=== PATIENT | male | born 1970 | race Caucasian/White ===

== ENCOUNTER 2017-01-15 18:48 | Emergency (ER) | payer SELFPAY ==
--- NOTE | 2017-01-15 19:13 | ER Document Report ---
ED Medical Screen (RME) - General Chief Complaint: Rectal Bleeding Stated Complaint: RECTAL BLEEDING Mode of Arrival: Ambulatory Information source: Patient Notes: Patient presents to the emergency department with left-sided abdominal pain and bloody diarrhea since yesterday. Reports he ate some meth a couple days ago which may be the possible cause. Denies fever vomiting. Denies past medical history of ulcers. Denies hx of GIB. Feels weak and dizzy. I have greeted and performed a rapid initial assessment of this patient. A comprehensive ED assessment and evaluation of the patient, analysis of test results and completion of the medical decision making process will be conducted by additional ED providers. - Related Data Allergies/Adverse Reactions: No Known Allergies Allergy (Verified 12/21/13 10:50) Past Medical History - Immunizations Hx Diphtheria, Pertussis, Tetanus Vaccination: No Physical Exam - Vital signs Vitals: Temp Pulse Resp BP Pulse Ox 98.1 F 91 20 120/94 H 100 01/15/17 18:58 01/15/17 18:58 01/15/17 18:58 01/15/17 18:58 01/15/17 18:58 Course - Vital Signs Vital signs: Temp Pulse Resp BP Pulse Ox 98.1 F 91 20 120/94 H 100 01/15/17 18:58 01/15/17 18:58 01/15/17 18:58 01/15/17 18:58 01/15/17 18:58
[2017-01-15 21:44] LABS: ABSOLUTE BASOPHILS # (AUTO) 0.1 10^3/uL (0.0-0.2); ABSOLUTE EOSINOPHILS # (AUTO) 0.2 10^3/uL (0.0-0.6); ABSOLUTE LYMPHOCYTES (AUTO) 1.4 10^3/uL (0.5-4.7); ABSOLUTE MONOCYTES (AUTO) 0.6 10^3/uL (0.1-1.4); ABSOLUTE NEUT (AUTO) 5.3 10^3/uL (1.7-8.2); BASOPHILS % (AUTO) 0.8 % (0-2); EOSINOPHILS % (AUTO) 2.8 % (0-6); HEMOGLOBIN 14.2 g/dL (13.5-17.0); HGB HCT DIFFERENCE 0.6; LYMPHOCYTES % (AUTO) 18.2 % (13-45); MEAN CORPUSCULAR HGB CONC 33.7 g/dL (32.0-36.0); MEAN CORPUSCULAR VOLUME 89 fl (80-97); MONOCYTES % (AUTO) 7.4 % (3-13); RED BLOOD COUNT 4.73 10^6/uL (4.35-5.55); RED CELL DISTRIBUTION WIDTH 13.5 % (11.5-14.0); SEGMENTED NEUTROPHILS % (AUTO) 70.8 % (42-78); WHITE BLOOD COUNT 7.6 10^3/uL (4.0-10.5)
[2017-01-15 21:46] LABS: APPEARANCE,URINE SLIGHTLY-CLOUDY; BILIRUBIN,URINE NEGATIVE (NEGATIVE); CALCIUM OXALATE CRYSTALS,URINE FEW /HPF; GLUCOSE, URINE NEGATIVE (NEGATIVE); KETONES,URINE NEGATIVE (NEGATIVE); LEUKOCYTE ESTERASE,URINE NEGATIVE (NEGATIVE); NITRITE,URINE NEGATIVE (NEGATIVE); PROTEIN,URINE 30 mg/dL (NEGATIVE); URINE SPECIFIC GRAVITY 1.033
[2017-01-15 21:50] LABS: PROTHROMBIN TIME 12.4 SEC (11.4-15.4)
[2017-01-15 22:01] LABS: URINE BARBITURATES SCREEN NEGATIVE; URINE METHADONE SCREEN NEGATIVE; URINE OPIATES LOW NEGATIVE; URINE PHENCYCLIDINE SCREEN NEGATIVE
[2017-01-15 22:03] LABS: ALANINE AMINOTRANSFERASE 24 U/L (21-72); ALBUMIN 4.6 g/dL (3.5-5.0); ALKALINE PHOSPHATASE 68 U/L (38-126); ANION GAP 14 (5-19); ASPARTATE AMINO TRANSFERASE 19 U/L (17-59); BILIRUBIN,DIRECT 0.2 mg/dL (0.0-0.4); BILIRUBIN,TOTAL 0.9 mg/dL (0.2-1.3); BLOOD UREA NITROGEN 14 mg/dL (7-20); CALCIUM 9.8 mg/dL (8.4-10.2); CARBON DIOXIDE 25 mmol/L (22-30); CHLORIDE 105 mmol/L (98-107); CREATININE RESULT 1.02 mg/dL (0.52-1.25); GLUCOSE 120 mg/dL (75-110); POTASSIUM 3.9 mmol/L (3.6-5.0); SODIUM 144.2 mmol/L (137-145); TOTAL PROTEIN 7.7 g/dL (6.3-8.2)
[2017-01-16] MEDS ORDERED: NORMAL SALINE 1000 ML 1,000 ML IV ONE (00:20)
--- NOTE | 2017-01-16 05:39 | ER Document Report ---
ED GI/ - General Chief Complaint: Abdominal Pain Stated Complaint: RECTAL BLEEDING Mode of Arrival: Ambulatory Information source: Patient Notes: 46-year-old male presents to the emergency department complaining of left lower quadrant abdominal pain over the last 2 days. Reports associated small amount of bright red blood in stool during bowel movements this morning. Patient admits to frequent use of crystal meth for approximately 2-3 times a week. Reports "ate" some 2 days ago however states already had onset of pain. Reports similar episode several years ago. Denies fever, nausea or vomiting, chest pain or shortness of breath. TRAVEL OUTSIDE OF THE [place] IN LAST 30 DAYS: No - HPI Patient complains to provider of: Abdominal pain Timing/Duration: Gradual, Persistent Quality of pain: Achy Severity at maximum: Moderate Severity in ED: Mild Pain Level: 1 Location: LLQ Associated symptoms: Blood in stool Similar symptoms previously: Yes Recently seen / treated by doctor: No - Related Data Allergies/Adverse Reactions: No Known Allergies Allergy (Verified 12/21/13 10:50) Past Medical History - General Information source: Patient - Social History Smoking Status: Current Every Day Smoker Frequency of alcohol use: Rare Drug Abuse: Methamphetamine Lives with: Family Family History: Reviewed & Not Pertinent Patient has suicidal ideation: No Patient has homicidal ideation: No - Medical History Medical History: Negative Renal/ Medical History: Denies: Hx Peritoneal Dialysis Surgical Hx: Negative - Immunizations Hx Diphtheria, Pertussis, Tetanus Vaccination: Yes Review of Systems - Review of Systems Constitutional: No symptoms reported EENT: No symptoms reported Cardiovascular: No symptoms reported Respiratory: No symptoms reported Gastrointestinal: See HPI Genitourinary: No symptoms reported Male Genitourinary: No symptoms reported Musculoskeletal: No symptoms reported Skin: No symptoms reported Hematologic/Lymphatic: No symptoms reported Neurological/Psychological: No symptoms reported -: Yes All other systems reviewed and negative Physical Exam - Vital signs Vitals: Temp Pulse Resp BP Pulse Ox 98.1 F 91 20 120/94 H 100 01/15/17 18:58 01/15/17 18:58 01/15/17 18:58 01/15/17 18:58 01/15/17 18:58 Interpretation: Normal - General General appearance: Appears well, Alert In distress: None - HEENT Head: Normocephalic, Atraumatic Eyes: Normal Pupils: PERRL - Respiratory Respiratory status: No respiratory distress Chest status: Nontender Breath sounds: Normal Chest palpation: Normal - Cardiovascular Rhythm: Regular Heart sounds: Normal auscultation Murmur: No Pulses: Normal: Radial Normal capillary refill: Yes - Abdominal Inspection: Normal Distension: No distension Bowel sounds: Normal Tenderness: Tender - Tenderness with palpation to left lower quadrant. No: Nontender, McBurney's point, Soni's sign, Guarding, Rebound, Other Organomegaly: No organomegaly - Rectal Tenderness: No Stool: Heme positive, See lab result. No: Bloody Hemorrhoids: None Prostate: Normal - Back Back: Normal, Nontender - Extremities General upper extremity: Normal inspection, Nontender, Normal color, Normal ROM , Normal strength, Normal temperature. No: Tender, Edema General lower extremity: Normal inspection, Nontender, Normal color, Normal ROM , Normal strength, Normal temperature, Normal weight bearing. No: Tender, Edema - Neurological Neuro grossly intact: Yes Cognition: Normal Orientation: AAOx4 Zully Coma Scale Eye Opening: Spontaneous [place] Coma Scale Verbal: Oriented [place] Coma Scale Motor: Obeys Commands [place] Coma Scale Total: 15 Speech: Normal Cranial nerves: Normal Cerebellar coordination: Normal Motor strength normal: LUE, RUE, LLE, RLE Additional motor exam normals: Equal associate principal Sensory: Normal - Psychological Associated symptoms: Normal affect, Normal mood - Skin Skin Temperature: Warm Skin Moisture: Dry Skin Color: Normal Course - Re-evaluation Re-evalutation: 01/16/17 05:45 Patient hemodynamically stable, in no distress, afebrile and nontoxic. Labs unremarkable. Hemoccult positive however no gross blood on rectal exam. CT scan shows moderate sigmoid colitis with diverticulosis without perforation or abscess. Patient is very well appearing and tolerating oral fluids without difficulty or vomiting. Discussed patient presentation and findings with ED physician Dr. Parekh who recommends outpatient treatment with ciprofloxacin and Flagyl and follow-up with PCP and GI. Patient appears stable for discharge and agrees with home care, follow-up, and ED return precautions. - Vital Signs Vital signs: Temp Pulse Resp BP Pulse Ox 98.2 F 79 16 116/82 100 01/16/17 06:00 01/16/17 06:00 01/16/17 06:00 01/16/17 06:00 01/16/17 06:00 - Laboratory Result Diagrams: 01/15/17 21:31 01/15/17 21:31 Laboratory results interpreted by me: 01/15/17 01/15/17 21:31 21:31 Glucose 120 H Urine Protein 30 H Urine Urobilinogen 2.0 H - Diagnostic Test Radiology reviewed: Image reviewed, Reports reviewed Discharge - Discharge Clinical Impression: Sigmoid diverticulosis Condition: Stable Disposition: HOME, SELF-CARE Instructions: Colitis, Nonspecific ([facility]), Ciprofloxacin ([facility]), Metronidazole ( [facility]), Clear Liquid Diet ([facility]) Additional Instructions: Continue clear liquid diet with plenty of fluids over the next 24-48 hours. Then eat a diet high in fiber with plenty of vegetables and fruits. Stop using crystal meth and/or any other illicit substances. Follow-up with your primary care provider and gastroenterology in the next 1-2 days. Return to the emergency department for any worsening symptoms or concerns. Prescriptions: Ciprofloxacin HCl [Cipro 500 mg Tablet] 500 mg PO BID #20 tablet Metronidazole 500 mg PO BID 10 Days Referrals: KODAK HERNÁNDEZ MD [ACTIVE STAFF] - Follow up tomorrow
[2017-01-16 06:09] VITALS: BP 116/82
== END 2017-01-16 06:00 | disposition home or self-care (01) ==
LOC: ER 18:48
DX: K57.30 Diverticulosis of large intestine without perforation or abscess without bleeding (principal); K52.9 Noninfective gastroenteritis and colitis, unspecified; R10.32 Left lower quadrant pain; R19.5 Other fecal abnormalities
CPT/HCPCS: 36415; 74177; 80053; 80307; 81001; 82272; 85025; 85610; 99284

== ENCOUNTER 2020-04-14 11:46 | Emergency (ER) | payer SELFPAY ==
[2020-04-14] MEDS ORDERED: NORMAL SALINE 1000 ML 1,000 ML IV ONE ×2 (12:11→13:33)
--- NOTE | 2020-04-14 12:18 | ER Document Report ---
ED Psych Disorder / Suicide - General Mode of Arrival: Medic Information source: Patient TRAVEL OUTSIDE OF THE [place] IN LAST 30 DAYS: No - HPI Patient complains to provider of: Bizarre behavior, Hallucinating Onset: Just prior to arrival Quality of pain: No pain Pain Level: Denies Suicide Risk Factors: Substance abuse Injury to: Lower extremity Associated symptoms: Anxious, Psychomotor agitation Similar symptoms previously: No Recently seen / treated by doctor: No <SOTERO ROSS - Last Filed: 04/14/20 20:22> <SUE OLEARY - Last Filed: 04/15/20 10:03> - General Chief Complaint: Psych Problem Stated Complaint: BEHAVIORAL ISSUES Time Seen by Provider: 04/14/20 12:00 Primary Care Provider: [facility] [Provider Group] - Follow up as needed [facility] [Provider Group] - Follow up as needed [facility] [Provider Group] - Follow up as needed [facility] [Provider Group] - Follow up as needed Notes: Patient presents after being found screaming in his yard stating that the snake was in his trailer and bit him all over his legs. Patient's family member saw patient screaming and felt that this was typical of whenever he has been on methamphetamine in the past. Family members did report to EMS patient received a stimulus check yesterday and they were concerned about methamphetamine use today. Patient complains of increased thirst and feeling dehydrated. Patient reports that he saw multiple snakes biting him all over his legs. (SOTERO ROSS) - Related Data Allergies/Adverse Reactions: No Known Allergies Allergy (Verified 08/06/17 23:12) Past Medical History - General Information source: Patient, Transfer Record - Social History Smoking Status: Never Smoker Frequency of alcohol use: None Drug Abuse: Methamphetamine Lives with: Alone Family History: Reviewed & Not Pertinent Patient has homicidal ideation: No - Medical History Medical History: Negative Renal/ Medical History: Denies: Hx Peritoneal Dialysis Surgical Hx: Negative - Immunizations Hx Diphtheria, Pertussis, Tetanus Vaccination: Yes <SOTERO ROSS - Last Filed: 04/14/20 20:22> Review of Systems - Review of Systems Constitutional: No symptoms reported EENT: No symptoms reported Cardiovascular: No symptoms reported. denies: Chest pain, Palpitations Respiratory: No symptoms reported. denies: Cough, Short of breath Gastrointestinal: No symptoms reported. denies: Vomiting Genitourinary: No symptoms reported Male Genitourinary: No symptoms reported Musculoskeletal: No symptoms reported Skin: Other - Patient reports snake bites all over his legs Hematologic/Lymphatic: No symptoms reported Neurological/Psychological: Anxiety, Hallucinations <VANDANA,SOTERO - Last Filed: 04/14/20 20:22> Physical Exam - General General appearance: Alert, Anxious In distress: None - HEENT Head: Normocephalic, Atraumatic Eyes: Normal Conjunctiva: Normal Nasal: Normal Mouth/Lips: Normal Mucous membranes: Normal Neck: Normal, Supple. No: Lymphadenopathy - Respiratory Respiratory status: Tachypnea Chest status: Nontender Breath sounds: Normal Chest palpation: Normal - Cardiovascular Rhythm: Tachycardia Heart sounds: S1 appreciated, S2 appreciated Murmur: No - Abdominal Inspection: Normal Distension: No distension Bowel sounds: Normal Tenderness: Nontender - Back Back: Normal, Nontender - Extremities General upper extremity: Normal inspection, Normal strength General lower extremity: Normal strength - Neurological Zully Coma Scale Eye Opening: Spontaneous [place] Coma Scale Verbal: Oriented [place] Coma Scale Motor: Obeys Commands [place] Coma Scale Total: 15 - Psychological Associated symptoms: Anxious, Visual hallucinations - Skin Skin Temperature: Warm Skin Moisture: Dry Skin Color: Other - Multiple abrasions to bilateral lower extremities, feet dirty <VANDANASOTERO - Last Filed: 04/14/20 20:22> - Vital signs Vitals: Temp Pulse Resp BP Pulse Ox 97.7 F 116 H 18 135/71 H 99 04/14/20 11:50 04/14/20 11:50 04/14/20 11:50 04/14/20 11:50 04/14/20 11:50 Course - Laboratory Result Diagrams: 04/14/20 12:15 04/14/20 17:20 <SOTERO ROSS - Last Filed: 04/14/20 20:22> - Laboratory Result Diagrams: 04/14/20 12:15 04/14/20 21:44 <SUE OLEARY - Last Filed: 04/15/20 10:03> - Re-evaluation Re-evalutation: 04/14/20 18:37 Patient clinically more calm and appears to feel better. Patient with dark misael-colored urine at bedside. Patient repeat chemistry reviewed, patient's creatinine normalized after initial fluid bolus although patient CPK has more than doubled. We will continue IV fluid hydration and recheck at this time. Consulted with Dr. Álvarez who advises giving 2 additional liters of IV fluid. RN advised to bolus the remaining bag of LR and to give a second liter of LR as IV bolus. 04/14/20 20:24 Bedside report and handoff given to Kristy Oleary HEAD GAUGE UNIT OPERATOR. Will repeat CPK after patient's fourth liter of IV fluids has infused. (SOTERO ROSS) 04/14/20 21:33 Patient resting quietly with no signs or symptoms of any acute distress. He did have his fluids almost completed. I have ordered his lab work to be run after the second liter of fluids. He is continuing to be alert and oriented. (SUE WAITE) - Vital Signs Vital signs: Temp Pulse Resp BP Pulse Ox 98.2 F 79 20 129/85 H 96 04/14/20 22:51 04/14/20 22:51 04/14/20 22:16 04/14/20 22:51 04/14/20 22:51 - Laboratory Laboratory results interpreted by me: 04/14/20 04/14/20 04/14/20 12:15 12:15 12:15 Lymph % (Auto) 5.2 L Absolute Lymphs (auto) 0.4 L Seg Neutrophils % 89.8 H Sodium 146.0 H Potassium Chloride 113 H Carbon Dioxide 20 L BUN 23 H Creatinine 1.66 H Est GFR ( Amer) 54 L Est GFR (MDRD) Non-Af 44 L Glucose 114 H Calcium 10.3 H Magnesium 2.4 H Total Bilirubin 1.5 H Creatine Kinase 795 H Total Protein 8.8 H Albumin 5.1 H Urine Protein Urine Ketones Urine Urobilinogen Salicylates < 1.0 L Acetaminophen < 10 L 04/14/20 04/14/20 04/14/20 15:17 17:20 21:44 Lymph % (Auto) Absolute Lymphs (auto) Seg Neutrophils % Sodium Potassium 3.5 L Chloride 112 H 110 H Carbon Dioxide BUN Creatinine Est GFR ( Amer) Est GFR (MDRD) Non-Af Glucose Calcium Magnesium Total Bilirubin Creatine Kinase 1540 H 1569 H Total Protein Albumin Urine Protein 30 H Urine Ketones TRACE H Urine Urobilinogen 2.0 H Salicylates Acetaminophen 04/14/20 22:09 Lymph % (Auto) Absolute Lymphs (auto) Seg Neutrophils % Sodium Potassium Chloride Carbon Dioxide BUN Creatinine Est GFR ( Amer) Est GFR (MDRD) Non-Af Glucose Calcium Magnesium Total Bilirubin Creatine Kinase Total Protein Albumin Urine Protein 30 H Urine Ketones TRACE H Urine Urobilinogen Salicylates Acetaminophen Discharge <SOTERO ROSS - Last Filed: 04/14/20 20:22> <SUE OLEARY - Last Filed: 04/15/20 10:03> - Discharge Clinical Impression: Elevating creatinine kinase, Dehydration, Drug abuse, amphetamine type Condition: Stable Disposition: HOME, SELF-CARE Additional Instructions: HYPOKALEMIA: You have an abnormally decreased level of serum potassium. Hypokalemia may cause weakness, fatigue, or heart rhythm abnormalities. Sometimes there are no symptoms at all. Usually, low serum potassium is due to taking diuretics (water pills). It can also be due to excessive vomiting or diarrhea. If no obvious cause is evident, further evaluation will be necessary. Treatment is usually oral potassium supplements. Take these exactly as pre scribed. You may also want to select foods which are naturally high in potassium -- fruits (such as bananas, cantaloupe, grapes, oranges, prunes, tomatoes), fresh vegetables (potatoes, spinach, beans, peas), orange or tomato juice, tomato pasta sauce, milk, fish (halibut, tuna, salmon, santiago) A follow-up blood test is usually performed to assure that the potassium is returning to normal. Call the physician if you suffer severe weakness, muscle twitching or cramping, palpitations (pounding or irregular heartbeat), or any other new or alarming symptoms. Dehydration Dehydration can result from vomiting or diarrhea, fever, or decreased intake of fluids. If severe, hospitalization and intravenous fluids may be required. Most cases are treated at home with fluids by mouth. For the next 24 hours, drink lots of clear fluids. In mild cases, this can be soda pop or sports drinks. For more severe dehydration, the doctor may recommend special fluids such as Pedialyte or Lytren. Try to get three liters (3 quarts) of fluid per day. If vomiting occurs, continue to drink the fluids frequently (every 15 to 20 minutes), but in small amounts (one or two ounces). Depending on the type of dehydration, the doctor may prescribe antinausea medicine or potassium replacements. Call the doctor or return for re-examination if you become progressively we ak, vomit repeatedly, or have other new symptoms. Intravenous (IV) Fluids As part of your care today, you received intravenous (IV) fluids. IV fluids are administered to patients who are dehydrated or to those who have certain chemical (electrolyte) abnormalities that need correcting. POTASSIUM: A potassium-containing medication has been given. This is usually used to treat potassium depletion caused by diuretics or by vomiting and diarrhea. This type of medicine is available in many forms, including elixirs, powders, fruity drinks, and pills. If one type is not working out for you, another can be substituted. Potassium can cause stomach upset. This can be prevented by taking it with meals. Do not take more than your doctor recommends. Notify your doctor if you develop repeated vomiting, black or bloody stool, severe weakness or numbness. FOODS HIGH IN POTASSIUM: baked potato with skin 1080 mg tomato pasta sauce, 1 cup 940 sweet potato with skin 690 orange juice, 1 cup 480 faroese chard 480 tuna, 3 oz 480 cantaloupe, 1 cup 430 banana 420 spinach 420 yogurt, plain, nofat, 6 oz 400 milk, 1 cup 370 watermelon, 2 cups 340 tomato, 1/2 cup 210 Other foods high in potassium are most other fruits and vegetables and fish. He is refrain from using meth amphetamines Please follow-up with your primary care doctor in the next couple days. Forms: Elevated Blood Pressure, Smoking Cessation Education Referrals: [facility] [Provider Group] - Follow up as needed [facility] [Provider Group] - Follow up as needed [facility] [Provider Group] - Follow up as needed [facility] [Provider [facility]] - Follow up as needed
[2020-04-14 12:29] LABS: ABSOLUTE BASOPHILS # (AUTO) 0.1 10^3/uL (0.0-0.2); ABSOLUTE LYMPHOCYTES (AUTO) 0.4 10^3/uL (0.5-4.7); ABSOLUTE MONOCYTES (AUTO) 0.4 10^3/uL (0.1-1.4); ABSOLUTE NEUT (AUTO) 7.6 10^3/uL (1.7-8.2); BASOPHILS % (AUTO) 0.8 % (0-2); HEMATOCRIT 39.9 % (37.9-51.0); HEMOGLOBIN 13.6 g/dL (13.5-17.0); LYMPHOCYTES % (AUTO) 5.2 % (13-45); MEAN CORPUSCULAR HEMOGLOBIN 30.7 pg (27.0-33.4); MEAN CORPUSCULAR HGB CONC 34.1 g/dL (32.0-36.0); MEAN CORPUSCULAR VOLUME 90 fl (80-97); MONOCYTES % (AUTO) 4.2 % (3-13); PLATELET COUNT 287 10^3/uL (150-450); RED BLOOD COUNT 4.44 10^6/uL (4.35-5.55); RED CELL DISTRIBUTION WIDTH 13.8 % (11.5-14.0); SEGMENTED NEUTROPHILS % (AUTO) 89.8 % (42-78); TOTAL CELLS COUNTED % (AUTO) 100 %; WHITE BLOOD COUNT 8.5 10^3/uL (4.0-10.5)
[2020-04-14 12:57] LABS: ALBUMIN 5.1 g/dL (3.5-5.0); ALKALINE PHOSPHATASE 85 U/L (38-126); ANION GAP 13 (5-19); ASPARTATE AMINO TRANSFERASE 40 U/L (17-59); BILIRUBIN,DIRECT 0.1 mg/dL (0.0-0.4); BILIRUBIN,TOTAL 1.5 mg/dL (0.2-1.3); BLOOD UREA NITROGEN 23 mg/dL (7-20); CALCIUM 10.3 mg/dL (8.4-10.2); CARBON DIOXIDE 20 mmol/L (22-30); CHLORIDE 113 mmol/L (98-107); GLUCOSE 114 mg/dL (75-110); POTASSIUM 4.3 mmol/L (3.6-5.0); TOTAL PROTEIN 8.8 g/dL (6.3-8.2)
[2020-04-14 13:02] LABS: ACETAMINOPHEN < 10 ug/mL (10-30); ALCOHOL < 10 mg/dL (NONE DETECTED); SALICYLATE < 1.0 mg/dL (2.0-20.0)
--- NOTE | 2020-04-14 13:20 | EKG REPORT ---
SEVERITY:- ABNORMAL ECG - SINUS TACHYCARDIA LEFT ANTERIOR FASCICULAR BLOCK BORDERLINE PROLONGED QT INTERVAL : Confirmed by: Hamzah Medrano 14-Apr-2020 13:19:27
--- NOTE | 2020-04-14 14:28 | PSYCHOLOGICAL NOTE ---
Psych Note - Psych Note Date seen by psych provider: 04/14/20 Time seen by psych provider: 13:80 - [id number]. Psych Note: Presenting Problem: Patient is a 49 year old male who presented to the [facility] ED today via EMS after his mother called them due to patient standing in the yard and screaming. Patient told EMS he saw a snake at his house and it bit both of his legs (medical documentation noted no bite hirsch but multiple superficial scratches bilaterally to both legs). Patient has a history of Crystal Methamphetamine use but told EMS and medical he has not used anything in a month and denied other drug use. HE informed medical staff he is prescribed benzodiazepines. He reported to medical staff he was scared he was going to . Chart review revealed patient was seen in the ED by Behavioral Health 08/06/17 for Psychosis (delusions and paranoia that neighbors were watching him), UDS was positive for Amphetamines and he was diagnosed with use disorder, he was held overnight and discharged to follow up with [facility] for outpatient services. Patient identified "my throat and mouth are dry, I can't swallow, I need something to drink, I am dehydrated. Observed patient with IV and fluids running. Explained they were giving the fluids to address dehydration but he didn't seem to understand and attending ED nurse said she has told him the same several times. His main concern was getting a drink for his dry mouth and throat. Patient identified he is in the ED because his mother called EMS due to a snake in the house. He denied drug and alcohol use. He denied mental health diagnoses. He was looking around the room, often a quick glance over by sink. When asked if he saw anything he said "no, I know what I saw at home, someone must be messing with me." UDS was positive for Methamphetamine. When confronted about it patient stated "my friend gave a a bump a couple days ago." Patient was alert and oriented to self, person, place, time and situation (as her perceived it). Mood was euthymic with congruent affect. He did not make any suicidal or homicidal statements or gestures and even stated he was scared he was going to from being bitten by a snake. Patient looked around the room, often doing a quick glance by the sink but denied seeing anything. Thought processes were perseverative on dry mouth and throat, unable to swallow and wanting a drink. Conversational speech was mumbled and slurred. Intellectual abilities are estimated to be average. Insight, judgment and impulse control were fair as the day went on and he sobered up/obtained more fluids. Collateral: Medical staff reported family on scene told EMS patient just received his stimulus check. At 1506 tried calling the home number listed, it was immediately forwarded to voice mail and mailbox full. Then tried calling Emergency Contact Krissy Anthony and recording stated the number dialed has been changed/Disconnected/No longer in service. Clinical Presentation: Altered Mental Status likely due to Methamphetamine Use Diagnosis: History of Crystal Methamphetamine Use per patient last use a month ago Medication recommendations made by the psychiatric medication provider Dr. Rubén LICONA., includes: Add Thorazine 50MG Intramuscular or By Mouth every 6 hours as needed for agitation/psychosis Add Cogentin 1MG Intramuscular or By Mouth once a day to curb tremor side effects often associated with antipsychotic medications Impression/Plan: Patient is cleared from acute psychiatric services. There were no concerns for suicidal or homicidal ideation. He presented with acute psychosis related to a snake in his yard and having bit on both legs by it, His UDS was positive for Methamphetamine though he initially denied use for the past month. This is likely the cause of acute psychosis. Provided patient with the outpatient mental health resource sheet which highlighted both [facility] numbers for crisis/talk therapy/linkage to other services and supports, as well as documented walk in times for [place] and [facility]. Also provided the substance abuse resource sheet which highlighted and documented both [facility] numbers who can provide assistancw with voluntary inpatient and treatment, listed the 6 detox facilities and highlighted [facility] as local detox. Consulted with Dr. Finn regarding the management and care of patient. ED Physician in agreement with recommendations.
[2020-04-14] MEDS ORDERED: CHLORPROMAZINE HCL 50 MG TABLET PO PRN (14:34)
[2020-04-14] MEDS ORDERED: RINGERS SOLUTION,LACTATED 1,000 ML IV ONE ×2 (15:17→18:34)
[2020-04-14 15:35] LABS: APPEARANCE,URINE SLIGHTLY-CLOUDY; BILIRUBIN,URINE NEGATIVE (NEGATIVE); COLOR,URINE AMBER; GLUCOSE, URINE NEGATIVE (NEGATIVE); KETONES,URINE TRACE mg/dL (NEGATIVE); LEUKOCYTE ESTERASE,URINE NEGATIVE (NEGATIVE); NITRITE,URINE NEGATIVE (NEGATIVE); PROTEIN,URINE 30 mg/dL (NEGATIVE); URINE SPECIFIC GRAVITY 1.027
[2020-04-14 16:48] LABS: URINE BARBITURATES SCREEN NEGATIVE; URINE BENZODIAZEPINES SCREEN NEGATIVE; URINE COCAINE SCREEN NEGATIVE; URINE MARIJUANA (THC) SCREEN NEGATIVE; URINE METHADONE SCREEN NEGATIVE; URINE PHENCYCLIDINE SCREEN NEGATIVE
[2020-04-14 18:03] LABS: ANION GAP 7 (5-19); BLOOD UREA NITROGEN 19 mg/dL (7-20); CALCIUM 8.5 mg/dL (8.4-10.2); CARBON DIOXIDE 22 mmol/L (22-30); CHLORIDE 112 mmol/L (98-107); CREATINE KINASE 1540 U/L (55-170); GLUCOSE 106 mg/dL (75-110); POTASSIUM 3.9 mmol/L (3.6-5.0)
[2020-04-14 22:08] LABS: ALBUMIN 3.6 g/dL (3.5-5.0); ALKALINE PHOSPHATASE 48 U/L (38-126); ANION GAP 5 (5-19); ASPARTATE AMINO TRANSFERASE 56 U/L (17-59); BILIRUBIN,TOTAL 1.1 mg/dL (0.2-1.3); BLOOD UREA NITROGEN 17 mg/dL (7-20); CALCIUM 8.6 mg/dL (8.4-10.2); CARBON DIOXIDE 26 mmol/L (22-30); CHLORIDE 110 mmol/L (98-107); CREATINE KINASE 1569 U/L (55-170); GLUCOSE 97 mg/dL (75-110); POTASSIUM 3.5 mmol/L (3.6-5.0); TOTAL PROTEIN 6.6 g/dL (6.3-8.2)
[2020-04-14 22:30] LABS: APPEARANCE,URINE CLEAR; BILIRUBIN,URINE NEGATIVE (NEGATIVE); COLOR,URINE AMBER; GLUCOSE, URINE NEGATIVE (NEGATIVE); KETONES,URINE TRACE mg/dL (NEGATIVE); LEUKOCYTE ESTERASE,URINE NEGATIVE (NEGATIVE); NITRITE,URINE NEGATIVE (NEGATIVE); PROTEIN,URINE 30 mg/dL (NEGATIVE); URINE SPECIFIC GRAVITY 1.027; UROBILINOGEN,URINE NEGATIVE mg/dL (<2.0)
[2020-04-14 22:52] VITALS: BP 129/85
[2020-04-15] MEDS ORDERED: BENZTROPINE MESYLATE 1 MG TABLET PO SCH (10:00)
== END 2020-04-14 23:05 | disposition home or self-care (01) ==
LOC: ER 11:46
DX: E86.0 Dehydration (principal); F15.10 Other stimulant abuse, uncomplicated; R79.89 Other specified abnormal findings of blood chemistry; F91.9 Conduct disorder, unspecified; R44.1 Visual hallucinations; S80.812A Abrasion, left lower leg, initial encounter; S80.811A Abrasion, right lower leg, initial encounter; X58.XXXA Exposure to other specified factors, initial encounter; Y92.009 Unspecified place in unspecified non-institutional (private) residence as the place of occurrence of the external cause
CPT/HCPCS: 93005; 99285; 96360; 96361; 36415; 80307 ×4; 82550; 83735; 85025; 87070; 80053; 81001; 93010; J7030; J7120

== ENCOUNTER 2020-04-15 11:40 | Emergency (ER) | payer SELFPAY ==
[2020-04-15 12:26] LABS: ABSOLUTE BASOPHILS # (AUTO) 0.1 10^3/uL (0.0-0.2); ABSOLUTE LYMPHOCYTES (AUTO) 1.1 10^3/uL (0.5-4.7); ABSOLUTE MONOCYTES (AUTO) 0.6 10^3/uL (0.1-1.4); ABSOLUTE NEUT (AUTO) 4.9 10^3/uL (1.7-8.2); BASOPHILS % (AUTO) 0.8 % (0-2); EOSINOPHILS % (AUTO) 0.3 % (0-6); HEMATOCRIT 38.6 % (37.9-51.0); HEMOGLOBIN 12.9 g/dL (13.5-17.0); LYMPHOCYTES % (AUTO) 16.8 % (13-45); MEAN CORPUSCULAR HEMOGLOBIN 30.3 pg (27.0-33.4); MEAN CORPUSCULAR HGB CONC 33.3 g/dL (32.0-36.0); MEAN CORPUSCULAR VOLUME 91 fl (80-97); MONOCYTES % (AUTO) 9.1 % (3-13); PLATELET COUNT 246 10^3/uL (150-450); RED BLOOD COUNT 4.25 10^6/uL (4.35-5.55); RED CELL DISTRIBUTION WIDTH 13.9 % (11.5-14.0); TOTAL CELLS COUNTED % (AUTO) 100 %; WHITE BLOOD COUNT 6.8 10^3/uL (4.0-10.5)
[2020-04-15 12:47] LABS: ALBUMIN 4.4 g/dL (3.5-5.0); ALKALINE PHOSPHATASE 75 U/L (38-126); ANION GAP 6 (5-19); ASPARTATE AMINO TRANSFERASE 157 U/L (17-59); BILIRUBIN,DIRECT 0.3 mg/dL (0.0-0.4); BILIRUBIN,TOTAL 1.6 mg/dL (0.2-1.3); BLOOD UREA NITROGEN 19 mg/dL (7-20); CALCIUM 9.4 mg/dL (8.4-10.2); CARBON DIOXIDE 24 mmol/L (22-30); CHLORIDE 114 mmol/L (98-107); GLUCOSE 95 mg/dL (75-110); POTASSIUM 4.1 mmol/L (3.6-5.0); TOTAL PROTEIN 7.7 g/dL (6.3-8.2)
[2020-04-15 12:52] LABS: ACETAMINOPHEN < 10 ug/mL (10-30); ALCOHOL < 10 mg/dL (NONE DETECTED); SALICYLATE < 1.0 mg/dL (2.0-20.0)
[2020-04-15] MEDS ORDERED: RINGERS SOLUTION,LACTATED 1,000 ML IV ONE (13:14)
[2020-04-15] MEDS ORDERED: LORAZEPAM INJ 2 MG/1 ML VIAL IV ONE (13:50)
--- NOTE | 2020-04-15 19:13 | ER Document Report ---
ED Psych Disorder / Suicide - General Chief Complaint: Psych Problem Stated Complaint: IVC Time Seen by Provider: 04/15/20 13:02 Information source: Patient, Law Enforcement Notes: Patient presents with all enforcement with IVC paperwork and hand. Patient reportedly was at home seen multiple snakes in his house and on the vyas. A garnett room worker presented to his home and he moved threatening towards her with a garden hoe. Patient was seen in the emergency department yesterday after seeing snakes in his home and being agitated with bizarre behavior. Patient did test positive for methamphetamine use yesterday. Patient denies any suicidal homicidal ideation. TRAVEL OUTSIDE OF THE [place] IN LAST 30 DAYS: No - HPI Patient complains to provider of: Aggression, Agitated Onset: Just prior to arrival Pain Level: Denies Suicide Risk Factors: Substance abuse Associated symptoms: Agitated, Psychomotor agitation Similar symptoms previously: Yes Recently seen / treated by doctor: Yes - Related Data Allergies/Adverse Reactions: No Known Allergies Allergy (Verified 08/06/17 23:12) Past Medical History - General Information source: Patient - Social History Smoking Status: Never Smoker Frequency of alcohol use: None Drug Abuse: Methamphetamine Family History: Reviewed & Not Pertinent - Medical History Medical History: Negative Renal/ Medical History: Denies: Hx Peritoneal Dialysis Surgical Hx: Negative - Immunizations Hx Diphtheria, Pertussis, Tetanus Vaccination: Yes Review of Systems - Review of Systems Constitutional: No symptoms reported EENT: No symptoms reported Cardiovascular: No symptoms reported Respiratory: No symptoms reported Gastrointestinal: No symptoms reported Genitourinary: No symptoms reported Male Genitourinary: No symptoms reported Musculoskeletal: No symptoms reported Skin: No symptoms reported Hematologic/Lymphatic: No symptoms reported Neurological/Psychological: Hallucinations, Other - Agitation, aggressive behavior Physical Exam - Vital signs Vitals: Temp Pulse Resp BP Pulse Ox 97.9 F 115 H 19 160/103 H 100 04/15/20 11:45 04/15/20 11:45 04/15/20 11:45 04/15/20 11:45 04/15/20 11:45 - General General appearance: Alert, Anxious In distress: None - HEENT Head: Normocephalic, Atraumatic Eyes: Normal Conjunctiva: Normal Nasal: Normal Mouth/Lips: Normal Mucous membranes: Normal Neck: Normal, Supple. No: Lymphadenopathy - Respiratory Respiratory status: No respiratory distress Chest status: Nontender Breath sounds: Normal Chest palpation: Normal - Cardiovascular Rhythm: Tachycardia Heart sounds: S1 appreciated, S2 appreciated - Back Back: Normal - Extremities General upper extremity: Normal inspection, Normal strength General lower extremity: Normal strength - Neurological [place] Coma Scale Eye Opening: Spontaneous [place] Coma Scale Verbal: Oriented [place] Coma Scale Motor: Obeys Commands [place] Coma Scale Total: 15 - Psychological Associated symptoms: Psychomotor agitation, Restlessness, Other - Pressured speech - Skin Skin Temperature: Warm Skin Moisture: Dry Course - Re-evaluation Re-evalutation: 04/16/20 14:42 Patient sleeping at this time, nursing staff states that he previously was becoming agitated and they did give him a dose of Thorazine. 04/16/20 17:23 Patient has been accepted to the [facility] and is awaiting transport at this time. Patient medically clear for transfer. - Vital Signs Vital signs: Temp Pulse Resp BP Pulse Ox 98.2 F 72 16 112/82 100 04/16/20 17:17 04/16/20 17:17 04/16/20 17:17 04/16/20 17:17 04/16/20 17:17 - Laboratory Result Diagrams: 04/15/20 12:10 04/15/20 12:10 Laboratory results interpreted by me: 04/15/20 04/15/20 12:10 12:10 RBC 4.25 L Hgb 12.9 L Chloride 114 H Total Bilirubin 1.6 H AST 157 H Salicylates < 1.0 L Acetaminophen < 10 L 04/15/20 19:12 Labs- All tests 24 hr 04/15/20 04/15/20 12:10 12:10 WBC 6.8 RBC 4.25 L Hgb 12.9 L Hct 38.6 MCV 91 MCH 30.3 MCHC 33.3 RDW 13.9 Plt Count 246 Lymph % (Auto) 16.8 [place] % (Auto) 9.1 Eos % (Auto) 0.3 Baso % (Auto) 0.8 Absolute Neuts (auto) 4.9 Absolute Lymphs (auto) 1.1 Absolute Monos (auto) 0.6 Absolute Eos (auto) 0.0 Absolute Basos (auto) 0.1 Seg Neutrophils % 73.0 Sodium 144.0 Potassium 4.1 Chloride 114 H Carbon Dioxide 24 Anion Gap 6 BUN 19 Creatinine 1.22 Est GFR ( Amer) > 60 Est GFR (MDRD) Non-Af > 60 Glucose 95 Calcium 9.4 Total Bilirubin 1.6 H Direct Bilirubin 0.3 Neonat Total Bilirubin Not Reportable Neonat Direct Bilirubin Not Reportable Neonat Indirect Bili Not Reportable AST 157 H ALT 48 Alkaline Phosphatase 75 Total Protein 7.7 Albumin 4.4 Salicylates < 1.0 L Acetaminophen < 10 L Serum Alcohol < 10 - EKG Interpretation by Me EKG shows normal: Sinus rhythm Rate: Tachycardia When compared to previous EKG there are: No significant change Additional EKG results interpreted by me: 04/15/20 19:13 Patient with sinus tachycardia rate of 101, QTc 493 with borderline prolonged QT interval there is no significant change when compared to previous that was completed yesterday. Discharge - Discharge Clinical Impression: Violent behavior Condition: Fair Disposition: PSYCH HOSP/UNIT
[2020-04-15] MEDS: CHLORPROMAZINE HCL 50 MG TABLET PO PRN (22:53)
[2020-04-16] MEDS ORDERED: BENZTROPINE MESYLATE 1 MG TABLET PO SCH (10:00)
[2020-04-16 10:14] LABS: APPEARANCE,URINE CLEAR; BILIRUBIN,URINE NEGATIVE (NEGATIVE); COLOR,URINE YELLOW; GLUCOSE, URINE NEGATIVE (NEGATIVE); KETONES,URINE NEGATIVE (NEGATIVE); LEUKOCYTE ESTERASE,URINE NEGATIVE (NEGATIVE); NITRITE,URINE NEGATIVE (NEGATIVE); PROTEIN,URINE NEGATIVE (NEGATIVE); URINE SPECIFIC GRAVITY 1.021; UROBILINOGEN,URINE NEGATIVE mg/dL (<2.0)
[2020-04-16] MEDS: CHLORPROMAZINE HCL 50 MG TABLET PO PRN (10:21)
--- NOTE | 2020-04-16 10:34 | PSYCHOLOGICAL NOTE ---
Psych Note - Psych Note Date seen by psych provider: 04/15/20 Time seen by psych provider: 13:15 - MORRO WORTYH colalteral at [phone]. Psych Note: Presenting Problem: Patient is a 49 year old male who presented to the [facility] ED today via law enforcement, petitioned for IVC by MORRO WORTHY for psychosis (seeing snakes all over his camper, killing them with a garden hoe, saying their bodies were all over, but per [facility] none observed) and aggression (mainly verbal via irritability but he did go after [facility] worker with the Garden Hoe). Please note patient was seen in the ED yesterday (04/14/2020) for similar etiology: saying there were snakes in his yard and camper, a snake bit both legs. Yesterday UDS was positive for Methamphetamine after patient had denied any recent use. He had admitted to history of Crystal Meth use but said it had been a month. When confronted he said a friend gave him a bump a couple days ago. Patient followed directives and stayed in his room but was irritable as evidenced by loud tone and saying his father and brother lied on him to get him to the ED. He went on saying they just want him off the land his brother own, "they never gave a shit about me before why now," and I just need to leave to get my things from that property and leave." He stated "there are snakes on the land and in my camper, 2 are still in there, there are 3-4 bodies in pieces due to me using the Garden Hoe to get them so hard to tell what they were." He stated "I do a little bit of shit every now and then, I do not drive when using but my brother told law enforcement I do so brother took my keys, it's a lie and that's my vehicle." When challenged that not only did family have concern so did MCM as they did not see the snakes either patient said "that's because they are all against me." Patient was alert and oriented to self, person, place, and situation. Mood was labile (euthymic and irritable) but mainly irritable as evidenced by loud tone and gong off about family lying. He did not make any suicidal or homicidal statements or gestures. Patient has been seeing snakes that others don't the past two days and when confronted about MCM being concerned not just family he said they are all against him. Thought processes were a bit tangential. Conversational speech was mumbled, slurred and pressured. Intellectual abilities are estimated to be average. Insight, judgment and impulse control were poor as evidenced by psychosis to the extent when mentioned MCM was concerned not just family he stated they are all against him. Clinical Presentation: Mood lability (euthymic, irritable) Paranoia Diagnosis: History of Crystal Methamphetamine Use (UDS positive yesterday for Meth) Medication recommendations made by the psychiatric medication provider Dr. Ruébn LICONA., includes: Add Thorazine 50MG Intramuscular or By Mouth every 6 hours as needed for agitation/psychosis Add Cogentin 1MG Intramuscular or By Mouth once a day to curb tremor side effects often associated with antipsychotic medications Impression/Plan: Recommendation to maintain FULL IVC given patient's acute psychotic state. He has presented to the ED two days in a row now for similar etiology. When being informed of MCM concerns not just family he commented they are all against him. He has mood lability (euthymic, irritable) but mainly irritable, and mumbled/slurred/pressured speech. It is felt presentation is likely substance induced (Methamphetamine). Consulted with Dr. Finn regarding the management and care of patient. ED Physician in agreement with recommendations.
[2020-04-16 11:04] LABS: URINE BARBITURATES SCREEN NEGATIVE; URINE BENZODIAZEPINES SCREEN NEGATIVE; URINE COCAINE SCREEN NEGATIVE; URINE MARIJUANA (THC) SCREEN NEGATIVE; URINE METHADONE SCREEN NEGATIVE; URINE PHENCYCLIDINE SCREEN NEGATIVE
[2020-04-16 17:19] VITALS: BP 112/82
--- NOTE | 2020-04-16 19:35 | EKG REPORT ---
SEVERITY:- BORDERLINE ECG - SINUS TACHYCARDIA LEFT AXIS DEVIATION BORDERLINE PROLONGED QT INTERVAL : Confirmed by: Hamzah Medrano 16-Apr-2020 19:34:50
== END 2020-04-16 18:19 ==
LOC: ER 11:40
DX: R45.6 Violent behavior (principal); R45.1 Restlessness and agitation; F19.10 Other psychoactive substance abuse, uncomplicated
CPT/HCPCS: 93005; 99285; 96361; 96374; 36415; 80307 ×4; 85025; 80053; 81001; 93010; J3490 ×2; J2060; J7120